=== PATIENT | female | born 1970 | race African-American/Black ===

== ENCOUNTER 2023-05-24 15:45 | Outpatient (RCR) | payer BC, SELFPAY ==
--- NOTE | 2023-05-03 15:05 | PTOPEVAL1 ---
Assessment and note entered by Shiloh Gross DPT Evaluation Information Assessment Status Evaluation Subjective Information Pt reports she has been diagnosed with stage 4 endometriosis. Has had 4 surgeries for it in the past. Pt reports she is currently having pelvic pain and spasms, is also getting thigh pain and feels like a groin injury. Also has been told she has degeneration in her hip and back. Highest pain recently /10 and lowest 1/10. Has had to start wearing more tennis shoes and flip flops due to the pain. Urinates 10 times a day and 1 time at night. Denies pain with urination. Denies urine leakage. Can hold urine unlimited amounts of time. BM every day if using an enema or suppository. Denies fecal incontinence. Previous pain with pap smears and at times pain with intercourse. Pt has never been and has been told she is perimenopausal. States when her pain is bad she has a harder time working and doing her ADL's, still has to get through work. Will return to MD soon as she just had an MRI last week. Patient goal: decrease pain. Reported Pain Level Pain Score 4: Self Report Assessment PT Clinical Summary The patient is presenting to skilled therapy with a history of pelvic and thigh pain and a diagnosis of endometriosis. She presents with significant increased pelvic floor muscle tone which is contributing to her pain and difficulty with normal activities. She will highly benefit from therapy to address these impairments in order to safely reduce pain and improve function. Plan of Care Interventions Electrical Stimulation,Hot Pack/Cold Pack,Manual Therapy,Neuro Re-education,Patient/Caregiver Education,Therapeutic Activities,Therapeutic Exercise PT Services Indicated Yes Treatment Frequency and 1 time a week for 4 weeks Duration These treatments will address the objective and functional deficits as defined above. The patient will be advanced safely and appropriately in order for the patient to progress towards his/her prior level of function. Additional exercises will be introduced and as well as a comprehensive home exercise program upon discharge, if needed, ?to ensure carryover of functional gains achieved in the clinic. This treatment plan has been reviewed and agreement upon by the patient.
--- NOTE | 2023-05-03 15:05 | OPREHPOC ---
Outpatient Therapy Plan of Care This is a Multidisciplinary Plan of Care that may contain components documented by all disciplines (PT, OT, and ST.) PT Problem 1 PT Problem #1 Knowledge Deficit PT Goal 1 Goal 1. Patient will perform independent HEP Target Visit 5 PT Problem 2 PT Problem #2 Pain PT Goal 1 Goal 1. Patient will report pain no higher than 3/10 with all activities 2. Patient will report pain no higher than 1/10 with palpation of pelvic floor Target Visit 5 PT Problem 3 PT Problem #3 Impaired Functional ADLs PT Goal 1 Goal 1. Patient able to do normal work and daily activities without limitation Target Visit 5
--- NOTE | 2023-05-10 10:34 | PCPTNOTE ---
Patient did not show up for appointment on 05/10/23. Left voicemail for patient to reschedule.
--- NOTE | 2023-05-31 11:33 | PCPTNOTE ---
Patient called to cancel appointment 05/31/23 due to having a pre-op appointment. She will call to schedule when able to return after her surgery.
--- NOTE | 2023-07-12 09:39 | PTOPDC ---
Assessment and note entered by Shiloh Gross, DPT Evaluation Information Assessment Status Discharge - Pt Not Present Subjective Information - Assessment PT Clinical Summary The patient has not attended therapy since 05/24/23 as she was planning to have surgery. She will be discharged this date and need a new script to resume therapy in the future. Plan of Care PT Services Indicated No
== END 2023-07-12 10:02 | disposition home or self-care (01) ==
LOC: ANHGOSHPT 15:45
PROVIDERS: PCP Internal Medicine
DX: N80.9 Endometriosis, unspecified (principal); N80.129 Deep endometriosis of ovary, unspecified ovary
CPT/HCPCS: 97110; 97140; 97162

== ENCOUNTER 2025-03-19 14:23 | Outpatient (CLI) | payer BC, SELFPAY ==
--- OUTSIDE RECORDS SUMMARY | 2023-12-04 16:30 | XMS_ITS ---
Author Organization [employer] [facility] [facility] ([address]) Address [address] [place] [address] Care Team Providers Care Meat Seafood Associate Name Role Phone Corrine ST, Ebony Primary Care Provider Dr. Dale Schneider Unavailable [phone] Z[employer], Provider Unavailable Unavailab le Allergies Allergen (clinical drug ingredient) Drug/Non Drug Allergy documented on EMR Reaction Allergy Type Onset Date Status Substance with sulfonamide structure and antibacterial mechanism of action (substance) SULFA (uncoded) Unknown Allergy Active REASON FOR VISIT [facility] To [facility] Conversion Encounter Medications Medication SIG (Take, Route, Frequency, Duration) Notes Start Date End Date Status Omeprazole 20 MG 1 cap(s) orally once a day; Duration: 30 day(s) Active SEMAGLUTIDE 0.5 MG/0.5 ML (0.5 MG DOSE) SUBCUTANEOUS SOLUTION ADDWITHOUTSIG *Please review for potential replacement for e-prescription and drug interaction check* Not-Taking Acetaminophen 325 MG 2 tab(s) orally every 4 hours Not-Taking LEUPROLIDE 7.5 MG/MONTH DIRECTED SUBCUTANEOUSLY ONCE A MONTH; Duration: 30 DAY(S) *Please review for potential replacement for e-prescription and drug interaction check* Not-Taking AIMOVIG SURECLICK AUTOINJECTOR AOOE 140 MG/ML 1 INJECTION SUBCUTANEOUSLY ONCE A MONTH *Please review for potential replacement for e-prescription and drug interaction check* 07/28/2023 Active SUMAtriptan Succinate 100 MG 1 tab(s) orally once Unknown NURTEC ODT 75 MG 1 TAB(S) ORALLY ONCE PRN *Please review for potential replacement for e-prescription and drug interaction check* 03/03/2023 Active AMITIZA 24 MCG ORAL CAPSULE ADDWITHOUTSIG *Please review for potential replacement for e-prescription and drug interaction check* 07/11/2020 Unknown Etonogestrel 68 MG 1 ea subcutaneously once; Duration: 1 dose(s) Not-Taking Docusate Calcium 50 MG/5 ML 5 ML ORALLY ONCE A DAY *Please review and pick correct strength-formula tion from Diarize options. If intended option is not shown, discontinue and re-order from Quick Search* Not-Taking Norethindrone Acetate 5 MG 1 tab(s) orally once a day Not-Taking Cholecalciferol 125 MCG 1 CAP(S) ORALLY ONCE A DAY; Duration: 30 DAY(S) *Please review and pick correct strength-formula tion from Diarize options. If intended option is not shown, discontinue and re-order from Quick Search* Not-Taking DICLOFENAC 1% TOPICAL KIT ADDWITHOUTSIG *Please review for potential replacement for e-prescription and drug interaction check* Not-Taking BUTABARBITAL ADDWITHOUTSIG *Please review for potential replacement for e-prescription and drug interaction check* Not-Taking Topiramate 25 MG 1 tab(s) orally 2 times a day Active Encounters Encounter Location Date Provider Diagnosis [address] [address] 12/04/2023 Provider [facility] Migraine without aura, not intractable, without status migrainosus G43.009 Assessments Encounter Date Diagnosis (ICD Code) Assessment Notes Treatment Notes Treatment Clinical Notes Section Notes 12/04/2023 Migraine without aura, not intractable, without status migrainosus (ICD-10 - G43.009) Plan Of Treatment Medication Medication Name Sig Start Date Stop Date Notes AIMOVIG SURECLICK AUTOINJECTOR AOOE 140 MG/ML 1 INJECTION SUBCUTANEOUSLY ONCE A MONTH 07/28/2023 *Please review for potential replacement for e-prescription and drug interaction check* NURTEC ODT 75 MG 1 TAB(S) ORALLY ONCE PRN 03/03/2023 *Please review for potential replacement for e-prescription and drug interaction check* Progress Notes * Emilie HAZELDOB: 3 (54 yo F)Acc No.[id number]:12/04/2023 Patient: Emilie NEW Provider: Parul Villegas :1970 A ge:53 Y S ex:Female Date:12/04/2023 Address:[address] [place], [place] [id number] Pcp:Ebony Castle MD Subjective: * Chief Complaints: * 1 . [facility] To [facility] Conversion Encounter. * Medical History: * Medications: T aking Omeprazole 20 MG Capsule Delayed Release 1 cap(s) orally once a day , Taking Topiramate 25 MG Tablet 1 tab(s) orally 2 times a day , Not-Taking/PRN Acetaminophen 325 MG Tablet 2 tab(s) orally every 4 hours , Not-Taking/PRN LEUPROLIDE 7.5 MG/MONTH POWDER FOR INJECTION, EXTENDED RELEASE DIRECTED SUBCUTANEOUSLY ONCE A MONTH , Notes to Pharmacist: *Please review for potential replacement for e-prescription and drug interaction check*, Not-Taking/PRN SEMAGLUTIDE 0.5 MG/0.5 ML (0.5 MG DOSE) SUBCUTANEOUS SOLUTION ADDWITHOUTSIG , Notes to Pharmacist: *Please review for potential replacement for e-prescription and drug interaction check*, Not- Taking/PRN BUTABARBITAL ADDWITHOUTSIG , Notes to Pharmacist: *Please review for potential replacement for e-prescription and drug interaction check*, Not-Taking/PRN Cholecalciferol 125 MCG CAPSULE 1 CAP(S) ORALLY ONCE A DAY , Notes to Pharmacist: *Please review and pick correct strength-formulation from Sernovaspan options. If intended option is not shown, discontinue and re-order from Quick Search*, Not-Taking/PRN DICLOFENAC 1% TOPICAL KIT ADDWITHOUTSIG , Notes to Pharmacist: *Please review for potential replacement for e-prescription and drug interaction check*, Not-Taking/PRN Norethindrone Acetate 5 MG Tablet 1 tab(s) orally once a day , Not-Taking/PRN Docusate Calcium 50 MG/5 ML SOLUTION 5 ML ORALLY ONCE A DAY , Notes to Pharmacist: *Please review and pick correct strength-formulation from Medispan options. If intended option is not shown, discontinue and re-order from Quick Search*, Not-Taking/PRN Etonogestrel 68 MG Implant 1 ea subcutaneously once , Unknown SUMAtriptan Succinate 100 MG Tablet 1 tab(s) orally once , Unknown AMITIZA 24 MCG ORAL CAPSULE ADDWITHOUTSIG , Notes to Pharmacist: *Please review for potential replacement for e-prescription and drug interaction check* * Allergies: S ULFA. Objective: * Vitals: Assessment: * Assessment: 1. M igraine without aura, not intractable, without status migrainosus - G43.009 (Primary) Plan: * Treatment: * Billing Information: * Visit Code: * Procedure Codes: * Electronic signature of Margaret SANCHEZ-Migration on 03/19/2025 at 03:08 PM CDT Sign off status: Pending * Provider: Parul rahman Migration Date: 0 12/04/2023 Generated for Demetrius prather/Sg/Lana on: 03/19/2025 03:08 PM CDT
--- OUTSIDE RECORDS SUMMARY | 2024-02-24 12:30 | XMS_ITS ---
Author Organization [facility] [place] ([address]) Address [address] [place] [address] Care Team Providers Care Occ Therapist Name Role Phone Corrine ST, Mounir Primary Care Provider Dr. Dale Schneider [facility] [phone] REASON FOR VISIT Headache follow-up Encounters Encounter Location Date Provider Diagnosis [facility] [address] [place] [address] 02/24/2024 Dale Jean Chronic migraine without aura, not intractable, without status migrainosus G43.709 ; Migraine with aura, not intractable, without status migrainosus G43.109 ; Migraine without aura, not intractable, without status migrainosus G43.009 and Drug-induced headache, not elsewhere classified, not intractable G44.40 Assessments Encounter Date Diagnosis (ICD Code) Assessment Notes Treatment Notes Treatment Clinical Notes Section Notes 02/24/2024 Chronic migraine without aura, not intractable, without status migrainosus (ICD-10 - G43.709) 02/24/2024 Migraine with aura, not intractable, without status migrainosus (ICD-10 - G43.109) 02/24/2024 Migraine without aura, not intractable, without status migrainosus (ICD-10 - G43.009) 02/24/2024 Drug-induced headache, not elsewhere classified, not intractable (ICD-10 - G44.40) Plan Of Treatment Next Appt Details Follow Up: 4 Weeks, Reason: Evaluation and Management Progress Notes * Emilie HAZELDOB: 3 (54 yo F)Acc No.[id number]:02/24/2024 Progress Notes Patient: Emilie NEW Provider: Chase Jean MD :1970 A ge:53 Y S ex:Female Date:02/24/2024 Address:[address] [place] [address] [id number] Pcp:Ebony Castle MD Subjective: * Chief Complaints: * 1 . Headache follow-up. * HPI: * Introduction: HPI: w lola presented for follow-up for headaches. * Initial History: INITIAL VISIT HISTORY: LAST VISIT HISTORY:. * Previous Impression & Plan: Notes P revious Diagnoses: 1 ) 2 ) 3 ) P revious Recommendations: 1 ) 2 ) 3 ) . * Interval History: Notes P harmacologic Treatment: C urrent abortive treatment: P revious abortive treatment: C urrent preventive treatment: P revious preventive treatment: M edication overuse: Present/Not present O ther modalities: Chiropractic, Physical Therapy, Acunpuncture, Biofeedback, Migraine devices H eadache Frequency: I nitial/baseline headache/migraine days/month: / L ast visit headache/migraine days/month: / C urrent headache/migraine days/month: / H eadache Scales: H IT-6: Current score: . Prior score: M IDAS: Current score: . Prior score: I nterval History: L ast visit was on . * Medical History: Objective: * Vitals: * Examination: G eneral examination: General appearance: P leasant, well-developed, well-nourished. HEENT: P upils equal, round and reactive to light. No conjunctival injection. No tenderness to palpation over the maxillary sinuses. No turbinate hypertrophy. Tympanic membranes appear normal. No oral lesions. No tenderness to palpation over the occipital notch bilaterally. Neurologic exam: A lert and oriented x 4. Fluent speech. Intact recall, fund of knowledge. Appropriate affect. Cranial nerves II-XII intact. Motor 5/5 strength in all extremities. Reflexes 2+/2 and symmetric in all extremities. Bilateral flexor plantar responses. Sensory exam intact to light touch, pinprick, vibration in all extremities. Cerebellar testing no ataxia or dysmetria. Gait normal. Back: N o cervical or periscapular trigger points. ? Assessment: * Assessment: 1. C hronic migraine without aura, not intractable, without status migrainosus - G43.709 (Primary) 2 . M igraine with aura, not intractable, without status migrainosus - G43.109 3 . M igraine without aura, not intractable, without status migrainosus - G43.009 4 . D rug-induced headache, not elsewhere classified, not intractable - G44.40 Plan: * Treatment: * Procedure Codes: 9 6160 PT-FOCUSED HLTH RISK ASSMT, G8427 DOC MEDS VERIFIED W/PT OR RE * Follow Up: 4 Weeks (Reason: Evaluation and Management) * Billing Information: * Visit Code: 11903 Office Visit, Est Pt., Level 4. Modifiers: 25 56273 Office Visit, Est Pt., Level 3. Modifiers: 25 * Procedure Codes: 51335 PT-FOCUSED HLTH RISK ASSMT. G8427 DOC MEDS VERIFIED W/PT OR RE. * Electronic signature of Dr. Dale Jean MD on 03/19/2025 at 03:08 PM CDT Sign off status: Pending * Provider: Chase Jean MD Date: 02/24/2024 Generated for Demetrius prather/Sg/eTransmitting on: 0 03/19/2025 03:08 PM CDT History and Physical Notes * HPI (History of Present Illness) Category Sub-Category Detail Notes Category Not es *Introduction HPI: who presented fo r follow-up for headaches *Initial History INITIAL VISIT HISTORY: LAST VISIT HISTORY: *Previous Impression & Plan Notes Previous Diagnoses: 1) 2) 3) Previous Recommendations: 1) 2) 3) *Interval History Notes Pharmacologic Treatment:Current abortive treatment:Previous abortive treatment:Current preventive treatment:Previous preventive treatment:Medication overuse: Present/Not presentOther modalities: Chiropractic, Physical Therapy, Acunpuncture, Biofeedback, Migraine devicesHeadache Frequency:Initial/baseline headache/migraine days/month: /Last visit headache/migraine days/month: /Current headache/migraine days/month: /Headache Scales:HIT-6: Current score: . Prior score: MIDAS: Current score: . Prior score: Interval History:Last visit was on Examination Category Sub-Category Detail Notes Category Not es General examination HEENT: Pupils equal , round and reactive to light. No conjunctival injection. No tenderness to palpation over the maxillary sinuses. No turbinate hypertrophy. Tympanic membranes appear normal. No oral lesions. No tenderness to palpation over the occipital notch bilaterally General appearance: Pleasant, well-devel oped, well-nourished Neurologic exam: Alert and oriented x 4. Fluent speech. Intact recall, fund of knowledge. Appropriate affect. Cranial nerves II-XII intact. Motor 5/5 strength in all extremities. Reflexes 2+/2 and symmetric in all extremities. Bilateral flexor plantar responses. Sensory exam intact to light touch, pinprick, vibration in all extremities. Cerebellar testing no ataxia or dysmetria. Gait normal Back: No cervical or peris capular trigger points
--- OUTSIDE RECORDS SUMMARY | 2024-08-31 12:30 | XMS_ITS ---
Author Organization [facility] [employer] [facility] [place] ([address]) Address [address] [place] [address] Care Team Providers Care Assurance Associate Name Role Phone Corrine ST, Ebony Primary Care Provider Dr. Dale Schneider Unavailable [phone] Bisi Albright [phone] REASON FOR VISIT Headache follow-up Encounters Encounter Location Date Provider Diagnosis [facility] [address] [place] [address] 08/31/2024 Bisi Albright Plan Of Treatment No Information Progress Notes * Emilie HAZELDOB: 3 (54 yo F)Acc No.[id number]:08/31/2024 Progress Notes Patient: Emilie NEW Provider: Kimberly Albright APRN :1970 A ge:54 Y S ex:Female Date:08/31/2024 Address:[address], [place] [facility] Pcp:Ebony Castle MD Subjective: * Chief Complaints: * 1 . Headache follow-up. * Medical History: Objective: * Vitals: Assessment: Plan: * Treatment: * Billing Information: * Visit Code: * Procedure Codes: * Electronic signature of EDY Bonilla-Viviana on 03/19/2025 at 03:08 PM CDT Sign off status: Pending * Provider: Kimberly Albright APRN Date: 0 08/31/2024 Generated for Demetrius prather/Sg/Lana on: 0 03/19/2025 03:08 PM CDT
--- NOTE | ~2025-03-19 | XR_ITS ---
XR lumbar spine 2-3V Indication: KIDNEY STONE;LUMBAR SPONDYLITIS Comparison: None Findings: Mild levoconvex scoliosis. Grade 1 anterolisthesis of L3 on L4 and L4 on L5, no fracture. Mild loss of disc height throughout Soft tissues unremarkable Impression: No acute abnormality. Reviewed, dictated and finalized at location P. Impression: No acute abnormality.
--- NOTE | ~2025-03-19 | XR_ITS ---
Abdominal radiograph(s) INDICATION: Kidney stone COMPARISON: None TECHNIQUE: 2 views supine AP abdomen FINDINGS: Lung bases clear. Scattered colonic stool. Small bowel loops not well seen. No evidence of organomegaly. No abnormal abdominal calcifications. Pelvic phleboliths. No acute bony abnormality. IMPRESSION: 1. No nephroureteral stones identified. Reviewed, dictated and finalized at location R.
--- OUTSIDE RECORDS SUMMARY | 2025-03-19 15:09 | XMS_ITS | Clinical Summary ---
Author Organization [facility] Address [address] [place] [address] Care Team Providers Care Napkin Band Wrapper Name Role Phone Unavailable Primary Care Provider Unavailabl e Allergies No known active allergies Medications propranolol (INDERAL) 20 mg tablet Take 20 mg by mouth 3 times daily. Active SUMAtriptan (IMITREX) 100 mg tablet Take 100 mg by mouth see administration instructions may repeat in 2 hours; max dose 200mg in 24 hours . Active BUTALB/ACETAMI NOPHEN/CAFFEIN E (FIORICET ORAL) Take by mouth. Activ e LEVONORGESTREL (MIRENA INTRAUTERINE) by Intrauterine route. Active ETONOGESTREL/E THINYL ESTRADIOL (NUVARING VAGINAL) Insert vaginally. Ac tive Active Problems No known active problems Social History Tobacco Use Types Packs/Day Years Used Date Smoking Tobacco: Never Smokeless Tobacco: Never Comments Unknown Sex and Gender Information Value Date Recorded Sex Assigned at Not on file Legal Sex Female 4:55 PM RIG BUILDER HELPER Gender Identity Not on file Sexual Orientation Not on file Last Filed Vital Signs Vital Sign Reading Time Taken Comments Blood Pressure 108/75 05/10/2017 5:25 PM RIG BUILDER HELPER Pulse 88 05/10/2017 5:25 PM RIG BUILDER HELPER Temperature 37.1 C (98.8 F) 05/10/2017 5:25 PM RIG BUILDER HELPER Respiratory Rate 14 05/10/2017 5:25 PM RIG BUILDER HELPER Oxygen Saturation 96% 05/10/2017 5:25 PM RIG BUILDER HELPER Inhaled Oxygen Concentration - - Weight 81.6 kg (180 lb) 05/10/2017 5:25 PM RIG BUILDER HELPER Height 165.1 cm (5' 5) 05/10/2017 5:25 PM RIG BUILDER HELPER Body Mass Index 29.95 05/10/2017 5:25 PM RIG BUILDER HELPER Plan of Treatment Health Maintenance Due Date Last Done Comments DTAP/TDAP/TD VACCINES (1 - Tdap) 1991 HEPATITIS B VACCINES (1 of 3 - 19+ 3-dose series) 06/22 HPV/Cotest (21-29) 1993 CERVICAL CANCER SCREENING 2002 HPV/Cotest (30-65) 2002 PAP SMEAR 2002 BREAST CANCER SCREENING 2012 COLORECTAL SCREENING 2017 Colorectal Cancer Screening 2017 FIT-DNA Q 3 years 2017 FIT/FOBT Q 1 year 2017 Flex Sig/CT Colonography Q 5 years 2017 ZOSTER VACCINE (1 of 2) 2022 INFLUENZA VACCINE (#1) 2025
--- OUTSIDE RECORDS SUMMARY | 2025-03-19 15:09 | XMS_ITS | Encounter Summary ---
Author Organization [facility] Address [address] [place] [address] Care Team Providers Care Bronc Buster Name Role Phone Ebony Castle MD Primary Care Provider [phone] Reason for Referral * Surgical (Routine) - Closed Specialty Diagnoses / Procedures Referred By Kenyon patricia Referred To Contact Diagnoses Bunion of right foot Correction of bunion right foot. Exostectomy 3rd toe right-possible Santos Ostomy right Hallux. Procedures Case request operating room: BUNIONECTOMY WITH OSTEOTOMY- correction of bunion right- exostectomy 3rd toe right - possible Santos osteotomy fight hallux ( [id number]) Alex Martinez DPM Phone: tel: fax: Alex Martinez DPM Phone: tel: fax: Referral ID Status Reason Start Date Expiration Date Visits Re quested Visits Authorized [id number] Closed 05/09/2019 06/08/2020 1 1 [employer]IDENT [employer]ING Encounter Details Date Type Department Care Team (Late st Contact Info) Description 05/09/2019 Prep for Procedure [facility] [address] [place] [address] Alex Martinez, DPM [address] [phone] Social History Tobacco Use Types Packs/Day Years Used Date Smoking Tobacco: Never Smokeless Tobacco: Never Alcohol Use Standard Drinks/Week Comments Yes 0 (1 standard drink = 0.6 oz pur e alcohol) AUDIT-C Answer Date Recorded Frequency of Alcohol Consumption 2-3 times a wee k 12/28/2018 Average Number of Drinks Not on file 019 Frequency of Binge Drinking Not on file 12/19 Comments Unknown Sex and Gender Information Value Date Recorded Sex Assigned at Female 12/28/2018 2:19 PM CDT Legal Sex Female 5:43 PM CDT Gender Identity Female 12/28/2018 2:19 PM CDT Sexual Orientation Straight 12/28/2018 2: 19 PM CDT documented as of this encounter Plan of Treatment Scheduled Orders Name Type Priority Associated Diagnoses Orde r Schedule Case request operating room: BUNIONECTOMY WITH OSTEOTOMY- correction of bunion right- exostectomy 3rd toe right - possible Santos osteotomy fight hallux ( [id number]) Case Request Routine Once for 1 Occurrences starting 05/09/2019 until 05/09/2019 documented as of this encounter Visit Diagnoses Diagnosis Prophylactic antibiotic- Primary Encounter for long-term (current) use of antibiotics documented in this encounter Care Teams Bronc Buster Relationship Specialty Start Date End Date Ebony Castle MD PCP - General 01/06/16 documented as of this encounter
--- OUTSIDE RECORDS SUMMARY | 2025-03-19 15:09 | XMS_ITS | Clinical Summary ---
Author Organization [facility] Address [address] [place] [address] Care Team Providers Care Measurement Technician Name Role Phone Ebony Castle MD Primary Care Provider [phone] Jarrell Mane MD Unavailable [phone] Allergies Active Allergy Reactions Criticality Noted Date Comments Other Headache Low 10/05/2018 Migraine-any highlighters on papers and colored paper Sulfa (Sulfonamide Antibiotics) Hives Medium 05/27/2011 Sulfacetamide Sodium-Sulfur Hives Medium 10/06/19 19 Tramadol Dizziness Low 10/05/2018 Medications fluticasone propionate (FLONASE) 50 mcg/actuation nasal sprayIndications:All ergic Rhinitis Administer 2 sprays into each nostril as needed for rhinitis or allergies Active SUMAtriptan (IMITREX) 100 mg tabletIndications:Mi graine Take 1 tablet (100 mg total) by mouth once as needed for migraine Rarely takes,takes last Active ascorbic acid (VITAMIN C) 1,000 mg tabletIndications:Vi tamin C Deficiency Take 1 tablet (1,000 mg total) by mouth daily as needed (supplement) Active cholecalciferol (VITAMIN D-3) 2000 unit tabletIndications:Vi tamin D Deficiency,supplemen t Take 1 tablet (2,000 Units total) by mouth every morning Active butalbital-acetamino phen-caffeine (ESGIC) 50-325-40 mg per tabletIndications:Mi graine Take 1 tablet by mouth every 6 (six) hours as needed for headaches Active omeprazole (PriLOSEC) 20 mg capsuleIndications:S ymptomatic Gastroesophageal Reflux Disease Take 1 capsule (20 mg total) by mouth daily before breakfast 11/15/19 21 Active ubrogepant (UBRELVY) 50 mg tabletIndications:Mi graine Take 1 tablet (50 mg total) by mouth once as needed for migraine Active guaiFENesin-dextrome thorphan ER (MUCINEX DM) 600-30 mg tablet extended release 12 hrIndications:Cough Take 1 tablet by mouth as needed Active rimegepant (Nurtec ODT) tablet,disintegratin gIndications:Migrain e Take 1 tablet (75 mg total) by mouth as needed (migraine) Active UNABLE TO FINDIndications:supp lement for migraine prevention Take 1 each by mouth every morning Med Name: [facility] 380 Active pyridoxine (VITAMIN B-6) 100 mg tabletIndications:Py ridoxine Deficiency,supplemen t Take 1 tablet (100 mg total) by mouth every morning Active zinc gluconate 50 mg tabletIndications:messer pplement Take 1 tablet (50 mg total) by mouth every morning Active polyethylene glycol (MIRALAX) 17 gram/dose bulk powder Take 17 g by mouth daily 116 g 06/04/20 23 Active Additional Information Patient taking differently:17 g oralAs needed, Indications: Bowel Evacuation, constipation, Informant: Self, Reported on 01/10/2025 Aimovig Autoinjector 140 mg/mL auto-injectorIndicat ions:Migraine Prevention Inject 1 mL (140 mg total) under the skin every 30 (thirty) days 1st of the month 11/23/19 24 Active meloxicam (MOBIC) 15 mg tablet Take 1 tablet by mouth once daily 30 tablet 03/17/20 24 Active Additional Information Patient taking differently:15 mg oralAs needed, pain, Has not taken in over 1 month , Indications: Osteoarthritis, pain, Informant: Self, Reported on 01/17/2025 bisacodyl EC (DULCOLAX EC) 5 mg EC tabletIndications:co nstipation Take 1 tablet (5 mg total) by mouth every evening Active cyclobenzaprine (FLEXERIL) 5 mg tabletIndications:Mu scle Spasm Take 1 tablet (5 mg total) by mouth 3 (three) times a day as needed for muscle spasms Active BIOTIN ORALIndications:supp lement Take 1 tablet by mouth 2 (two) times a day Active ginseng 100 mg capsule Take 1 capsule by mouth daily before breakfast Supplement -currently out of medication Active senna-docusate (PERICOLACE) 8.6-50 mg Take 2 tablets by mouth 2 (two) times a day May increase to 4 tablets twice daily if needed. HOLD medication for diarrhea. 14 tablet 1 10/05/19 25 Active Additional Information Patient taking differently:2 tablet oralAs needed, constipation, May increase to 4 tablets twice daily if needed. HOLD medication for diarrhea.,Indications: constipation, Informant: Self, Reported on 01/10/2025 clobetasoL (TEMOVATE) 0.05 % creamIndications:Ski n Inflammation Apply 1 Application topically 2 (two) times a day 12/13/19 25 Active nitroglycerin (NITROSTAT) 0.[address] 1 tablet (0.4 mg total) under the tongue every 5 (five) minutes as needed for chest pain (chest pain related anxiety) Has not taken 12/31/19 25 Active CALCIUM ORAL Take 1 tablet by mouth every evening Supplement Active psyllium 0.52 gram capsuleIndications:c onstipation Take 1 capsule (0.52 g total) by mouth daily before breakfast Active cyanocobalamin, vitamin B-12, (VITAMIN B-12 ORAL) Take 1 tablet by mouth daily before breakfast Supplement Active 5-hydroxytryptophan, 5-HTP, 50 mg capsule Take 1 tablet by mouth daily before breakfast Supplement Active HYDROcodone-acetamin ophen (NORCO) 5-325 mg per tabletIndications:Pa in Take 1-2 tablets by mouth every 4 (four) hours as needed for pain 8 tablet 01/18/20 25 Active acetaminophen (TYLENOL) 500 mg tablet Take 1 tablet (500 mg total) by mouth every 6 (six) hours as needed for pain Active verapamiL (CALAN) 120 mg tablet Take 1 tablet (120 mg total) by mouth daily 05/08/20 24 Active Active Problems Problem Noted Date Diagnosed Date De Quervain's tenosynovitis, right 01/09/2025 Amnesia 10/17/2024 Drug induced headache 10/17/2024 Non-refractory chronic migraine without aura Trigger finger of left thumb 09/06/2024 De Quervain's disease (radial styloid tenosynovi tis) 09/06/2024 Tenosynovitis, de Quervain 01/06/2024 Overview (01/19/2024): Labs 01/06/2024: CBC WNL; CMP glucose 105, but otherwise WNL; ESR/CRP WNL; rheumatoid factor/CCP/MVCWNL; hepatitis-B/C nonreactive; HIV antibody nonreactive US left hand/wrist 01/18/24: Tendon sheath effusion of the 1st extensor compartment suggestive of de Quervain tenosynovitis Grade 1 power Doppler of the dorsal wrist hand radial scaphoid joint Grade 1 effusion of the ulnar styloid Grade 2 power Doppler within the flexor tendons at the volar wrist Mild synovial thickening of the 2nd and 3rd PIPJ Assessment & Plan (01/19/2024 10:45 AM CDT): Laure is a pleasant 53 yoF that presented to our office with pain over the radial aspect of the L hand with recent diagnosis of dequervain's tenosynovitis per hand orthopedics. Received tendon injection last month without relief. Is in thumb spica splint, which does offer benefit. Otherwise, had recent R thumb trigger finger resolved with injection. Had previous R hand pain over the palm of the middle and ring fingers, which is now resolved. No current joint complaints other than L radial wrist pain discussed above. Denies inflammatory symptoms. Has pos morales's test with L wrist swelling. No other obvious synovitis. Labs 12/2023 displayed rheumatoid factor/CCP/MVC wnl with ESR/CRP WNL. Left hand/wrist ultrasound displayed a tendon sheath effusion of the 1st extensor compartment suggestive of de Quervain tenosynovitis. Otherwise, there was Doppler activity in the dorsal wrist and radial scaphoid along with flexor tendons of the volar wrist in an effusion of the ulnar styloid with no other significant findings. At this time, do not see obvious evidence to suggest an underlying autoimmune disease. Findings consistent with the Quervain tenosynovitis. She is currently prescribed meloxicam 7.5 mg daily. She usually alternates between this and naproxen or ibuprofen along with Tylenol Arthritis 750 mg b.i.d. (couldn't tolerate higher dose). Symptoms have improved with some residual discomfort. Will increase meloxicam to 15 mg daily and take this in combination with Tylenol Arthritis 750 mg b.i.d. and OTC Voltaren gel. Continue use of thumb spica splint. Continue to follow with hand Orthopedic and could consider a repeat de Quervain injection in the future. Follow up as needed or if any new symptoms arise. Seen with Dr. Mane. Assessment & Plan (01/06/2024 10:31 PM CDT): Larue is a pleasant 53 yoF presenting to our office with pain over the radial aspect of the L hand with recent diagnosis of dequervain's tenosynovitis per hand orthopedics. Received tendon injection last month without relief. Is in thumb spica splint, which does offer benefit. Otherwise, had recent R thumb trigger finger resolved with injection. Had previous R hand pain over the palm of the middle and ring fingers, which is now resolved. No current joint complaints other than L radial wrist pain discussed above. Denies inflammatory symptoms. Has pos morales's test with L wrist swelling. No other obvious synovitis. Do not see evidence for an inflammatory arthritis and/or autoimmune disease. Will evaluate further with appropriate serologies, radiographs, and L hand/wrist US. Recommended tylenol arthritis 1300 mg bid in combination with mobic. Continue use of thumb spica splint. Fu 2 weeks. Sooner if needed. Seen with Dr. Mane. Abnormal white blood cell (WBC) count 10/18/2023 Low vitamin D level 10/18/2023 Mixed anxiety and depressive disorder 09/17/2023 Endometriosis 04/15/2023 Gastroesophageal reflux disease without esophagi tis 01/13/2022 Pain of left thigh 06/17/2021 Helicobacter pylori gastrointestinal tract infec tion 09/18/2020 Helicobacter pylori gastritis 09/16/2020 Kidney stone 11/08/2017 Right flank pain 05/27/2017 Obesity with body mass index 30 or greater 05/25 Endometriosis determined by laparoscopy 01/21/20 16 Urinary tract infection 01/16/2016 Fallopian tube disorder 12/16/2015 Migraine 11/20/2015 Assessment & Plan (04/16/2020 5:16 PM CDT): Patient is a former patient of [facility]. Prior medical records from [facility] have been reviewed today with patient to facilitate transfer in care. Since last being seen a [facility] because of an increase in migraine frequency she was initiated on Aimovig and topiramate was discontinued. She continues on sumatriptan for abortive breakthrough and Fioricet for rescue. Her headache frequency is have recently reduced from 18 per month to 15 per month on Aimovig treatment. She does find that the sumatriptan and Fioricet seem to work a little bit better with the Aimovig on board. She has had no tolerability issues with medication. She will continue on Aimovig for migraine prophylaxis at this time. She is in not of need of refill as is being provided through her PCP. She does not need a renewal of sumatriptan either at this time is that is being renewed by her provider. She is asking for renewal of Fioricet and I have prescribed her a renewal as previously prescribed [facility]. I will plan on seeing her back for reassessment on her present regimen in 6 months time. Vitamin D deficiency 11/20/2015 Endometrioma of ovary 11/19/2014 Endometriosis of pelvic peritoneum 11/19/2014 Other ovarian dysfunction 11/19/2014 Hematuria 09/06/2014 Nephrolithiasis 09/06/2014 Abnormal perimenopausal bleeding 05/27/2011 Encounters Date Type Department Care Team Description 02/20/2025 7:57 AM CDT - 02/20/2025 11:59 PM CDT Hospital Encounter [facility] Radiology [facility] [address] [place] [id number] Tonia Trejo MD Pain of left hip (Primary Dx); Left hip pain Discharge Disposition: Discharge to home or self care 02/20/2025 Orders Only [facility] Orthopaedic Surgery [address] [place] [address] Office [address] [place] [address] Tonia Trejo MD Left hip pain (Primary Dx); Obesity (BMI 30-39.9) 02/20/2025 Orders Only [facility] Orthopaedic Surgery [address] [place] [address] [address] [place] [id number] Tonia Trejo MD Loss of weight (Primary Dx) 02/14/2025 Telephone Radiology - [address] [place] [address] [address] [place] [address] Karishma Bae, RT 02/12/2025 Orders Only [facility] Medicine Orthopaedic Surgery [address] [facility] 6th [place] [address] [place] [address] Tonia Trejo MD Left hip pain (Primary Dx) 02/12/2025 Orders Only [facility] Orthopaedic Surgery [address] [facility] [address]th [place] [address] [place] [address] Tonia Trejo MD 01/30/2025 2:30 PM CDT Office Visit [facility] Orthopaedic Surgery [address] [place] [address] [place] [address] [place] [address] Rizwan Beck MD De Quervain's syndrome (tenosynovitis) (Primary Dx) 01/17/2025 8:45 AM CDT - 01/17/2025 9:40 AM CDT Surgery [facility] ([facility]) [address] [place] [id number] Rizwan Beck MD RELEASE DEQUERVAINS 01/17/2025 8:36 AM CDT Anesthesia Event [facility] ([facility]) [address] [place] [address] Giacomo Carroll MD Smith, Christine A., NP 01/17/2025 7:16 AM CDT - 01/17/2025 10:44 AM CDT Hospital Encounter [facility] ([facility]) [address] [place] [id number] Rizwan Beck MD De Lashaevain's tenosynovitis, right (Primary Dx) Discharge Disposition: Discharge to home or self care 01/09/2025 Telephone [facility] Orthopaedic Surgery [address] [place] [address] 6th [place] [address] [place] [address] Rizwan Beck MD surgery scheduling from Last 3 Months Surgical History Surgery Date Site/Laterality Comments LAPAROSCOPY 06/21/2005 - 06/20/2006 for endometriosis DILATION AND CURETTAGE OF UTERUS 06/21/2011 - 06/20/2012 FOOT SURGERY 06/09/2004 Left bunionectomy LAPAROSCOPY 02/19/2018 - 03/20/2018 RA Op Lap ext adhesiolysis, peritoneal bx. Dr Carrera. path of bx was c/w endometriosis US ABDOMEN COMPLETE W LIVER DOPPLER (C) 08/14/2018 Right US ABDOMEN COMPLETE W LIVER DOPPLER (C) 09/16/2018 Right FL FLUORO GUIDED INJECTION HIP LEFT 01/27/2022 Left FL FLUORO GUIDED INJECTION HIP LEFT 08/01/2024 Left LAPAROSCOPY 06/21/2008 - 06/20/2009 for endometriosis LAPAROSCOPY 06/21/2014 - 06/20/2015 HYSTERECTOMY 06/04/2023 endometriosis excision, BL salpingectomy, L oophorectomy FOOT SURGERY 06/09/2019 Right bunionectomy COLONOSCOPY HAND SURGERY 06/21/2024 - 06/20/2025 Left FL FLUORO GUIDED INJECTION HIP LEFT 02/20/2025 Left Medical History Medical History Date Comments Endometriosis Personal history of other di seases of the nervous system and sense organs History of migraine he adaches - (Added by TW Conv) Personal history of other di seases of the digestive system Visual disturbance Vision change s - (Added by TW Conv) Personal history of other me ntal and behavioral disorders History of anxiety - (Added by TW Conv) Personal history of other en docrine, nutritional and metabolic disease History of hypokalem ia - (Added by TW Conv) Motion sickness Anemia Anxiety Depression Migraines Family History Medical History Relation Name Comments Coronary artery disease Brother Deep vein thrombosis Brother Hypertension Brother Heart failure Father Heart failure Mother Hypertension Mother Hypertension Other 1 Diabetes Other 2 Obesity Other 3 Heart disease Other 4 Stroke Sister Anesthesia problems Neg Hx Breast cancer Neg Hx a niece does Relation Name Status Comments Brother Father Mother Other 1 Other 2 Other 3 Other 4 Sister Social History Tobacco Use Types Packs/Day Years Used Date Smoking Tobacco: Never Passive Smoke Exposure: Never Smokeless Tobacco: Never Tobacco Cessation:Counseling Given: Not Answered AUDIT-C Answer Date Recorded Q1: How often do you have a drink containing alcohol? 4 or more times a week 01/17/2025 Q2: How many drinks containi ng alcohol do you have on a typical day when you are drinking? 1 or 2 Q3: How often do you have si x or more drinks on one occasion? Never 01/17/2025 Personal Safety Answer Date Recorded Have you ever been in or are you currently in a harmful physical or emotional relationship or is someone making you feel afraid or unsafe? Denies 01/17/2025 Comments No Sex and Gender Information Value Date Recorded Sex Assigned at Not on file Legal Sex Female 4:26 AM LEATHER STITCHER Gender Identity Not on file Sexual Orientation Not on file Obstetrics History Para Term AB IAB SAB Ectopic Multiple Livin g Live Births 0 0 0 0 0 0 0 0 0 0 0 Comments 13/0 LTR 18.2% Last Filed Vital Signs Vital Sign [place] Time Taken Comments Blood Pressure 118/84 01/17/2025 10:00 AM CDT Pulse 79 01/17/2025 10:00 AM CDT Temperature 36 C (96.8 F) 01/17/2025 9:10 AM CDT Respiratory Rate 17 01/17/2025 10:00 AM CDT Oxygen Saturation 99% 01/17/2025 10:00 AM CDT Inhaled Oxygen Concentration - - Weight 83 kg (183 lb) 01/30/2025 3:35 PM CDT Height 165.1 cm (5' 5) 01/30/2025 3:35 PM CDT Body Mass Index 30.45 01/30/2025 3:35 PM CDT Plan of Treatment Health Maintenance Due Date Last Done Comments Colon Cancer Screening-Colonoscopy 1970 Depression Screening 1970 Hepatitis B Screening 1990 DTaP/Tdap/Td Vaccine (4 - Tdap) 06/22/2012 06/21/2012, 09/13/1974, 07/18/1974, Additional history exists Zoster Vaccine (1 of 2) 2022 Regular Well Visit/Exam 18-64 02/16/2024 02/15/2023, 12/24/2021, 12/04/2020 Breast Cancer Screening-Mammogram 05/11/2024 05/11/2023, 01/15/2022, 08/26/2018, Additional history exists Influenza Vaccine (#1) 2025 Cervical Cancer Screening Discontinued 12/04/2020 Hepatitis C Screening Completed 01/06/2024, 016 Pneumococcal vaccine <65 Aged Out No longer eligible based on patient's age to complete this topic Procedures Procedure Name Priority Date/Time Associated Diagnosis Comments FL FLUORO GUIDED INJECTION HIP LEFT Schedule Routine, Read Routine (OP Routine) 02/20/2025 8:18 AM CDT Left hip pain KS AN PROCEDURE PLACEHOLDER Routine 01/17/2025 8:51 AM CDT KS AN ELECTIVE SUPRAGLOTTIC AIRWAY Routine 01/17/2025 8:51 AM CDT RELEASE DEQUERVAINS 01/17/2025 8 :36 AM CDT De Quervain's tenosynovitis, right HEPATITIS PANEL, ACUTE Routine 01/06/2024 4:35 PM CDT SCREENING MAMMOGRAM BILATERAL W MATEUSZ Schedule Routine, Read Routine (OP Routine) 05/11/2023 3:00 PM LEATHER STITCHER Encounter for screening mammogram for malignant neoplasm of breast THINPREP PAP WITH HPV Routine 12/04/2020 9:37 AM CDT from Last 3 Months or Most Recently Relevant to Health Maintenance Results * FL Fluoro Guided Injection Hip Left (02/20/2025 8:18 AM CDT) Narrative [facility] - 02/20/2025 8:18 AM CDT The images from this study are not interpreted by Radiology. Please refer to the physician's procedure / OR operative note. us Tonia Trejo MD IMG FLUOROSCOPY PROCEDURE S Final Result [facility] * KS AN ELECTIVE SUPRAGLOTTIC AIRWAY, KS AN PROCEDURE PLACEHOLDER (01/17/2025 8:51 AM CDT) Narrative Tonia Rendon CRNA - 01/17/2025 8:51 AM CDT Tonia Rendon CRNA 01/17/2025 8:51 AM Airway Patient location: OR Urgency: elective Date/time: 01/17/2025 8:42 AM Indications for airway management: anesthesia and airway protection Difficult airway: no Staff: Placed by: RUI: Tonia Rendon CRNA Emergent airway documentation: Risks and benefits discussed: yes Consent obtained: yes Consent given by: patient Airway prep: Preoxygenated: yes Patient position: sniffing MILS maintained throughout: yes Mask difficulty assessment: 0 - not attempted Spontaneous ventilation during airway: absent Sedation level during airway: GA Final airway details: Final airway type: supraglottic airway Final supraglottic airway: IGel SGA size: 4 Number of attempts: 1 Additional comments: Atraumatic airway; dentition unchanged following intubation. Giacomo Carroll MD ANESTHESIA ORDERABLES Final Res ult * Hepatitis panel, acute (01/06/2024 4:35 PM CDT) Hep A IgM NON-REACTI VE NON-REACT BRITT [facility] Comment: For additional information, please refer to http://Kimeltu/faq/UIY648 (This link is being provided for informational/ educational purposes only.) HepBsAg NON-REACTI VE NON-REACT BRITT [facility] Comment: For additional information, please refer to http://Kimeltu/faq/CMD341 (This link is being provided for informational/ educational purposes only.) Hep B core IgM NON-REACTI VE NON-REACT BRITT [facility] Comment: For additional information, please refer to http://Kimeltu/faq/RAO255 (This link is being provided for informational/ educational purposes only.) Hep C Ab NON-REACTI VE NON-REACT BRITT [facility] Comment: HCV antibody was non-reactive. There is no laboratory evidence of HCV infection. In most cases, no further action is required. However, if recent HCV exposure is suspected, a test for HCV RNA (test code 62916) is suggested. For additional information please refer to http://[employer].Moment.me/faq/TYZ09e7 (This link is being provided for informational/ educational purposes only.) 01/06/2024 4:35 PM CDT 01/06/2024 4:36 PM CDT [facility] MICROBIOLOGY - GENE RAL ORDERABLES Final Result [facility] [id number] [facility] [place] [id number] * Screening Mammogram Bilateral W Mateusz (05/11/2023 3:00 PM LEATHER STITCHER) Anatomical Region Laterality Modality Breast Bilateral Mammography Narrative 05/12/2023 2:20 PM LEATHER STITCHER Mammogram Technique: Bilateral Digital Breast Tomosynthesis, Bilateral C-view 2D Screening mammogram. Views obtained: bilateral craniocaudal and bilateral mediolateral oblique. Computer Aided Detection was performed. Mammogram Findings: The present examination has been compared to prior imaging studies performed at [facility] on 08/21/2015 and 08/26/2018, and at [facility] on 01/15/2022. The breasts are heterogeneously dense, which may obscure small masses. There is no suspicious abnormality in either breast. Impression: There is no mammographic evidence of malignancy. Annual screening mammography is recommended.If supplemental screening is desired, breast MRI would be recommended in this patient with heterogeneously dense breasts. OVERALL FINAL ASSESSMENT: BI-RADS CATEGORY 1: Negative. Procedure Note Cherie Ballard MD - 05/12/2023 Mammogram Technique: Bilateral Digital Breast Tomosynthesis, Bilateral C-view 2D Screening mammogram. Views obtained: bilateral craniocaudal and bilateral mediolateral oblique. Computer Aided Detection was performed. Mammogram Findings: The present examination has been compared to prior imaging studies performed at [facility] on 08/21/2015 and 08/26/2018, and at [facility] on 01/15/2022. The breasts are heterogeneously dense, which may obscure small masses. There is no suspicious abnormality in either breast. Impression: There is no mammographic evidence of malignancy. Annual screening mammography is recommended.If supplemental screening is desired, breast MRI would be recommended in this patient with heterogeneously dense breasts. OVERALL FINAL ASSESSMENT: BI-RADS CATEGORY 1: Negative. us Chago Carrera MD IMG MAMMO PROCEDURES Fi nal Result * ThinPrep Pap with HPV (12/04/2020 9:37 AM CDT) Pap test 12/04/2020 9:37 AM CDT 12/06/2020 9:37 AM CDT Narrative 12/10/2020 2:08 PM CDT [facility] Department of Pathology [address] [place], [place] [id number] Final Report with Addendum Patient Name: ODILIA DOWNEY Address: [address] [place] [address] Gender: F : 1970 (Age: 50) Service: DEFAULT Location: [facility] : [id number] [facility] #: [id number] Patient Type: [facility] SPECIMEN Taken: 12/04/2020 Received: 12/06/2020 Accessioned:: 12/09/2020 Reported: 12/10/2020 Physician(s): Chago Carrera M.D. [facility] Diagnosis: Source of Specimen: Imaged Thinprep Pap Test plus HPV - Perinatal Tech Cytologic Material Specimen Adequacy: - Satisfactory for evaluation; endocervical/transformation zone component present General Category: - Negative for intraepithelial lesion or malignancy AMBER Nguyễn(ASCP) Report Electronically Reviewed and Signed Out By CHRISTOPHER NguyễnASCP) 12/10/2020 14:08:40 Addenda: HPV Test Interpretation NEGATIVE for types 16, 18, 31, 33, 35, 39, 45, 51, 52, 56, 58, 59, 66 and 68. Test performed utilizing Gen-Probe Aptima assay. AMBER Nguyễn(ASCP) Report Electronically Reviewed and Signed Out By AMBER Nguyễn(ASCP) 12/10/2020 09:25:46 Specimen(s) Received: A: Imaged Thinprep Pap Test plus HPV - Perinatal Tech Cytologic Material Clinical History: Last Menstrual Period: 10/09 Menstrual History: Irregular Cycles Previous Negative Pap The Pap test is a screening test used to aid in the detection of cervical cancer and its precursors. It should not be the sole means by which malignant and premalignant lesions are diagnosed. Both false negative and false positive results may occur. It also has poor sensitivity for the detection of endometrial lesions and should not be used to evaluate suspected endometrial abnormalities. For these reasons it is most important to obtain Pap tests at regular intervals. The performance characteristics of some immunohistochemical stains, fluorescence in-situ hybridization tests and immunophenotyping by flow cytometry cited in this report (if any) were determined by the Surgical Pathology Department at [facility] as part of an ongoing research quality assurance analyst program and in compliance with federally mandated regulations drawn from the Clinical Laboratory Improvement Act of 1988 (CLIA '88). Some of these tests rely on the use of analyte specific reagents and are subject to specific labeling requirements by the US Food and Drug Administration. Such diagnostic tests may only be performed in a facility that is certified by the Department of Health and Human Services as a high complexity laboratory under CLIA '88. The FDA has determined that such clearance or approval is not necessary. This test is used for clinical purposes. It should not be regarded as investigational or for research. Nevertheless, federal rules concerning the medical use of analyte specific reagents require that the following disclaimer be attached to the report: This test was developed and its performance characteristics determined by the Surgical Pathology Department [facility]. It has not been cleared or approved by the U. S. Food and Drug Administration. Chago Carrera MD LAB CYTOLOGY ORDERABLES Final Result from Last 3 Months or Most Recently Relevant to Health Maintenance Insurance [facility] ACCESS CHOICE ANTHEM ACCESS CHOICE ANTHEM ACCESS CHOICE ANTHEM ACCESS CHOICE Advance Directives For more information, please contact: [phone] Documents on File Type Date Recorded Patient Aircraft Armorer Expl anation ADVANCE DIRECTIVE 06/11/2023 5:25 AM MARIA LUISA R OF TERMINAL PRESS OPERATOR-MEDICAL ADVANCE DIRECTIVE 06/04/2023 5:55 AM Maria Luisa r of Water Quality Analyst-Medical Care Teams Measurement Technician Relationship Specialty Start Date End Date Ebony Castle MD [address] [facility] [address] [place] [address] PCP - General Internal Medicine 12/04/20 Jarrell Mane MD [address] [place] [id number] Consulting Physician Rheumatology 01/17/24
--- OUTSIDE RECORDS SUMMARY | 2025-03-19 15:09 | XMS_ITS | Clinical Summary ---
Author Organization [facility] Address [address] [place] [address] Care Team Providers Care Rn Lpn Cna Name Role Phone Ebony Castle MD Primary Care Provider [phone] Allergies Active Allergy Reactions Criticality Noted Date Comments Sulfa Antibiotics Unknown 05/27/2011 Tramadol Dizziness 07/30/2020 Medications Ascorbic Acid (VITAMIN C) 500 MG Cap Active butalbital-norah taminophen-caf feine 50-325-40 MG tablet butalbital-acetamin ophen-caffeine 50 mg-325 mg-40 mg tablet Active naproxen sodium 550 MG tablet 1 10/28/19 19 Active SUMAtriptan 100 MG tablet Take 100 mg by mouth. Active topiramate 25 MG tablet Take 25 mg by mouth 2 (two) times daily. 3 12/17/19 19 Active oxyCODONE immediate release 5 MG immediate release tabletIndicati ons:Acute Pain < 7 Day Supply Take 1 tablet (5 mg total) by mouth every 4 (four) hours as needed for Pain. Indications: Acute Pain < 7 Day Supply 20 tablet 06/09/20 19 Active VITAMIN D3 MAXIMUM STRENGTH 125 MCG (5000 UT) Cap Take 1 capsule by mouth daily. 06/09/20 19 Active cyclobenzaprin e 5 MG tablet cyclobenzaprine 5 mg tablet TAKE 1 TABLET BY MOUTH THREE TIMES DAILY Active AIMOVIG 70 MG/ML Solution Auto-injector INJECT ONE SYRINGE SUBCUTANEOUSLY ONCE EVERY MONTH 05/29/20 20 Active Etonogestrel-E thinyl Estradiol (NUVARING) 0.12-0.015 MG/24HR RING NuvaRing 0.12 mg-0.015 mg/24 hr vaginal Active ibuprofen 800 MG tablet ibuprofen 800 mg tablet Active lactulose (CONSTULOSE) 10 GM/15ML solution Constulose 10 gram/15 mL oral solution Active AMITIZA 24 MCG capsule 07/11/19 21 Active Multiple Vitamin (MULTI-VITAMIN ) tablet Active Active Problems Problem Noted Date Diagnosed Date Right flank pain 05/27/2017 Endometriosis 01/21/2016 Urinary tract infection 01/16/2016 Fallopian tube disorder 12/16/2015 Migraine 11/20/2015 Vitamin D deficiency 11/20/2015 Endometrioma of ovary 11/19/2014 Endometriosis of pelvic peritoneum 11/19/2014 Other ovarian dysfunction 11/19/2014 Hematuria 09/06/2014 Nephrolithiasis 09/06/2014 Abnormal perimenopausal bleeding 05/27/2011 Family History Medical History Relation Comments Diabetes Brother Hypertension Brother Heart Disease Mother Hypertension Mother Diabetes Sister Hypertension Sister Relation Status Comments Brother Alive Mother Sister Alive Social History Tobacco Use Types Packs/Day Years Used Date Smoking Tobacco: Never Smokeless Tobacco: Never Tobacco Cessation:Counseling Given: No Alcohol Use Standard Drinks/Week Comments Yes 0 (1 standard drink = 0.6 oz pur e alcohol) AUDIT-C Answer Date Recorded Frequency of Alcohol Consumption 2-3 times a wee k 06/13/2019 Average Number of Drinks 1 or 2 019 Frequency of Binge Drinking Never 05/22 PHQ-2 Answer Date Recorded PHQ-2 Score - If the patient scores above 3, please move on to questions 3-9 2 07/30/2020 Comments No Sex and Gender Information Value Date Recorded Sex Assigned at Female 12/28/2018 2:19 PM CDT Legal Sex Female 5:43 PM CDT Gender Identity Female 12/28/2018 2:19 PM CDT Sexual Orientation Straight 12/28/2018 2: 19 PM CDT Last Filed Vital Signs Vital Sign Reading Time Taken Comments Blood Pressure 124/62 07/30/2020 4:45 PM PICKLING TANK OPERATOR Pulse 81 07/30/2020 4:45 PM PICKLING TANK OPERATOR Temperature 36.6 C (97.9 F) 06/09/2019 11:04 AM PICKLING TANK OPERATOR Respiratory Rate 16 06/09/2019 12:45 PM PICKLING TANK OPERATOR Oxygen Saturation 99% 07/30/2020 4:45 PM PICKLING TANK OPERATOR Inhaled Oxygen Concentration - - Weight 77.2 kg (170 lb 3.2 oz) 07/30/2020 4:45 P M PICKLING TANK OPERATOR Height 163.1 cm (5' 4.2) 12/28/2018 2:11 PM CDT Body Mass Index 29.03 12/28/2018 2:11 PM CDT Plan of Treatment Health Maintenance Due Date Last Done Comments Cervical Cancer Screening Pap Smear (Age 30 to 64) Every 3 Years 1972 Colorectal Cancer Screening Colonoscopy (10 Years) 1972 Annual Physical 1975 Hepatitis C 1990 Hepatitis B Vaccines (1 of 3 - 19+ 3-dose series) 1991 Cervical Cancer Screening Pap with HPV Testing (Age 30 to 64) Every 5 Years 2002 Cervical Cancer Screening with HPV 2002 DTaP, Tdap and Td Vaccines (1 - Tdap) 06/22/2012 06/21/2012, 09/13/1974, 07/18/1974, Additional history exists Mammogram Screening 2012 Pneumococcal Vaccine: 50+ Years (1 of 1 - PCV) 2022 Zoster Vaccines (1 of 2) 2022 COVID-19 Vaccine (1 - 2023- season) 2025 Meningococcal B Vaccine Aged Out No l onger eligible based on patient's age to complete this topic Meningococcal Vaccine Aged Out No rolly eric eligible based on patient's age to complete this topic RSV Immunizations Under 20 Months Aged Out No longer eligible based on patient's age to complete this topic [place] [address] [facility] Care Teams Rn Lpn Cna Relationship Specialty Start Date End Date Ebony Castle MD PCP - General 01/06/16
--- OUTSIDE RECORDS SUMMARY | 2025-03-19 15:09 | XMS_ITS | Patient Health Record ---
Author Organization [facility] [employer] [place] ([address]) Address [address] [place] [address] Care Team Providers Care Home Health Clinical Supervisor Name Role Phone Corrine ST, [facility] Primary Care Provider Dr. Dale Schneider Unavailable [phone] Bisi Albright Unavailable [phone] Allergies Allergen (clinical drug ingredient) Drug/Non Drug Allergy documented on EMR Reaction Allergy Type Onset Date Status Substance with sulfonamide structure and antibacterial mechanism of action (substance) SULFA (uncoded) Unknown Allergy Active Results Component Value Reference Range Notes ESTROGEN, TOTAL, SERUM Reviewed date:01/30/2025 04:01:09 PM Interpretation: Performing Lab:[facility], [facility],, [address] [place], [address] Roxie Russ MD,PhD,LOLY Notes/Report: FASTING: YES FASTING:YES NON-FASTING; NON-FASTING; NON-FASTING ESTROGENS, TOTAL, IA 34 Reference Ranges for Total Estrogen: Follicular Phase: 51-601 Luteal Phase: 87-1194 Postmenopausal: < or = 214 FERRITIN Reviewed date:01/30/2025 04:01:09 PM Interpretation: Performing Lab:ARNOL, [facility], [address] [place], [address] Zulma Walker MD Notes/Report: FASTING: YES FASTING:YES NON-FASTING; NON-FASTING; NON-FASTING FERRITIN 15 16-232 ng/mL FOLATE, SERUM Reviewed date:01/30/2025 04:01:09 PM Interpretation: Performing Lab:[facility], [address] [place], [address] Zulma Walker MD Notes/Report: NON-FASTING; NON-FASTING; NON-FASTING FASTING:YES FASTING: YES FOLATE, SERUM 11.7 Reference Range Low: <3.4 Borderline: 3.4-5.4 Normal: >5.4 FSH Reviewed date:01/30/2025 04:01:09 PM Interpretation: Performing Lab:[facility], [address] [place], [address] Zulma Walker MD Notes/Report: NON-FASTING; NON-FASTING; NON-FASTING FASTING:YES FASTING: YES FSH 85.6 Reference Range Follicular Phase 2.5-10.2 Mid-cycle Peak 3.1-17.7 Luteal Phase 1.5- 9.1 Postmenopausal 23.0-116.3 VITAMIN B12 Reviewed date:01/30/2025 04:01:09 PM Interpretation: Performing Lab:[facility], [address] [place], [address] Zulma Walker MD Notes/Report: NON-FASTING; NON-FASTING; NON-FASTING FASTING:YES FASTING: YES VITAMIN B12 3530 002-2529 pg/mL TESTOSTERONE, FREE (DIALYSIS ) AND TOTAL,MS Reviewed date:01/30/2025 04:01:09 PM Interpretation: Performing Lab:[facility], [facility], [address] [place] [address], [address], [place], [address] Reanna Salter MD,PhD Notes/Report: NON-FASTING; NON-FASTING; NON-FASTING FASTING:YES FASTING: YES TESTOSTERONE, TOTAL, MS 17 2-45 ng/dL For additional information, please refer to https://[employer]/faq/BFW943 (This link is being provided for informational/educational purposes only.) (Note) This test was developed and its analytical performance characteristics have been determined by [employer]. It has not been cleared or approved by the FDA. This assay has been validated pursuant to the CLIA regulations and is used for clinical purposes. TESTOSTERONE, FREE 1.4 0.1-6.4 pg/mL (Note) This test was developed and its analytical performance characteristics have been determined by [employer]. It has not been cleared or approved by the FDA. This assay has been validated pursuant to the CLIA regulations and is used for clinical purposes. [facility] [address] [place] [address] [address] [facility] [address] Reanna Salter MD, PhD CARDIO IQ(R) VITAMIN D, 25 H YDROXY Reviewed date:01/30/2025 04:01:09 PM Interpretation: Performing Lab:[facility], [address] [place] [address], [address], [place], [address] Reanna Salter MD,PhD Notes/Report: NON-FASTING FASTING:YES FASTING: YES VITAMIN D, 25-OH, TOTAL 45 30-100 ng/mL For additional information, please refer to http://education.[employer]. [employer]/faq/KJO596 (This link is being provided for information/educational purposes only.) (Note) Vitamin D, 25-Hydroxy reports concentrations of two common forms, 25-OHD2 and 25-OHD3. 25-OHD3 indicates both endogenous production and supplementation. 25-OHD2 is an indicator of exogenous sources such as diet or supplementation. Therapy is based on measurement of Total 25-OHD, with levels <20 ng/mL indicative of Vitamin D deficiency, while levels between 20 ng/mL and 30 ng/mL suggest insufficiency. Optimal levels are > or = 30 ng/mL. VITAMIN D, 25-OH, D3 45 Referen ce range: Not established VITAMIN D, 25-OH, D2 <4.0 (Note) Reference range: Not established This test was developed and its analytical performance characteristics have been determined by [employer]. It has not been cleared or approved by the US Food and Drug Administration. This assay has been validated pursuant to the CLIA regulation and is used for Clinical purposes. [facility] [address] [address],[address] [facility] [address] Reanna Salter MD, PhD See Note 1 Note 1 For additional information, please refer to http://education.[employer]. [employer]/faq/GRO772 educational purposes only.) (This link is being provided for informational/ VITAMIN B6, PLASMA Reviewed date:01/30/2025 04:01:09 PM Interpretation: Performing Lab:[facility], [facility], [address] [place] [address], [address], [place], [address] Reanna Salter MD,PhD Notes/Report: NON-FASTING; NON-FASTING FASTING:YES FASTING: YES VITAMIN B6, PLASMA 142.1 2.1-21.7 ng/mL (Note) Vitamin supplementation within 24 hours prior to blood draw may affect the accuracy of results. This test was developed and its analytical performance characteristics have been determined by [facility]. It has not been cleared or approved by the FDA. This assay has been validated pursuant to the CLIA regulations and is used for clinical purposes. [facility] [address] [place] [address],[address] [facility] [address] Reanna Salter MD, PhD VITAMIN B1 (THIAMINE), BLOOD , LC/MS/MS Reviewed date:01/30/2025 04:01:09 PM Interpretation: Performing Lab:[facility], [facility], [address] [place] [address], [address], [place], [address] Reanna Salter MD,PhD Notes/Report: NON-FASTING; NON-FASTING FASTING:YES FASTING: YES VITAMIN B1 (THIAMINE), BLOOD , LC/MS/MS 93 78-185 nmol/L (Note) Vitamin supplementation within 24 hours prior to blood draw may affect the accuracy of the results. This test was developed and its analytical performance characteristics have been determined by [facility]. It has not been cleared or approved by FDA. This assay has been validated pursuant to the CLIA regulations and is used for clinical purposes. [facility] [address] [place] [address],[address] [facility] [id number] Reanna Salter MD, PhD Reason For Referral No Information Medications Medication SIG (Take, Route, Frequency, Duration) Notes Start Date End Date Status NURTEC ODT 75 MG 1 TAB(S) ORALLY ONCE PRN *Please review for potential replacement for e-prescription and drug interaction check* 03/03/2023 Active Omeprazole 20 MG 1 cap(s) orally once a day; Duration: 30 day(s) Active Acetaminophen 325 MG 2 tab(s) orally every 4 hours Not-Taking AMITIZA 24 MCG ORAL CAPSULE ADDWITHOUTSIG *Please review for potential replacement for e-prescription and drug interaction check* 07/11/2020 Unknown Topiramate 25 MG 1 tab(s) orally 2 times a day Not-Taking LEUPROLIDE 7.5 MG/MONTH DIRECTED SUBCUTANEOUSLY ONCE A MONTH; Duration: 30 DAY(S) *Please review for potential replacement for e-prescription and drug interaction check* Not-Taking DOCUSATE 50 mg/5 mL 5 mL orally once a day Not-Taking SUMATRIPTAN 100 mg 1 tab(s) orally once Unknown AIMOVIG SURECLICK AUTOINJECTOR AOOE 140 MG/ML 1 INJECTION SUBCUTANEOUSLY ONCE A MONTH *Please review for potential replacement for e-prescription and drug interaction check* 07/28/2023 Active Ubrelvy 100 MG 1 tablet Orally twice a day; Duration: 30 days 09/11/2024 Active ETONOGESTREL 68 mg 1 ea subcutaneously once; Duration: 1 dose(s) Not-Taking SUMAtriptan Succinate 100 MG 1 tab(s) orally once Unknown CHOLECALCIFEROL 125 mcg 1 cap(s) orally once a day; Duration: 30 day(s) Not-Taking Docusate Calcium 50 MG/5 ML 5 ML ORALLY ONCE A DAY *Please review and pick correct strength-formula tion from [employer] options. If intended option is not shown, discontinue and re-order from Quick Search* Not-Taking NORETHINDRONE 5 mg 1 tab(s) orally once a day Not-Taking Etonogestrel 68 MG 1 ea subcutaneously once; Duration: 1 dose(s) Not-Taking OMEPRAZOLE 20 mg 1 cap(s) orally once a day; Duration: 30 day(s) Not-Taking DICLOFENAC 1% TOPICAL KIT ADDWITHOUTSIG *Please review for potential replacement for e-prescription and drug interaction check* Not-Taking ACETAMINOPHEN 325 mg 2 tab(s) orally every 4 hours Not-Taking Norethindrone Acetate 5 MG 1 tab(s) orally once a day Not-Taking BUTABARBITAL ADDWITHOUTSIG *Please review for potential replacement for e-prescription and drug interaction check* Not-Taking Verapamil HCl 120 MG 1 tablet Orally once daily; Duration: 30 days 05/08/2024 Active Cholecalciferol 125 MCG 1 CAP(S) ORALLY ONCE A DAY; Duration: 30 DAY(S) *Please review and pick correct strength-formula tion from [employer] options. If intended option is not shown, discontinue and re-order from Quick Search* Not-Taking SEMAGLUTIDE 0.5 MG/0.5 ML (0.5 MG DOSE) SUBCUTANEOUS SOLUTION ADDWITHOUTSIG *Please review for potential replacement for e-prescription and drug interaction check* Not-Taking Social History Tobacco Use: Social History Observation Description Date Details (start date - stop date) Never Smoker NA - NA Tobacco Control (Standard) Question Answer Notes Tobacco use: Nonsmoker Problems Problem Type SNOMED Code ICD Code Onset Dates Problem Status W/U Status Risk Notes Problem Chronic migraine without aura, non-refractor y (disorder) (256861048887 100) Migraine without aura, not intractable, without status migrainosus (G43.009) Active confirmed Problem Migraine with aura (3328028) Migraine with aura, not intractable, without status migrainosus (G43.109) Active confirmed Problem Chronic migraine without aura, non-intractab le (117619288652 100) Chronic migraine without aura, not intractable, without status migrainosus (G43.709) Active confirmed Problem Drug induced headache (477394658971 104) Drug-induced headache, not elsewhere classified, not intractable (G44.40) Active confirmed Problem Unspecified menopausal and perimenopausal disorder (N95.9) Active confirmed Problem Amnesia (26757804) Other amnesia (R41.3) Active confirmed Vital Signs Respiratory Rate 17 /min 04/27/2024 Blood pressure diastolic 85 mm Hg 09/07/2024 Oximetry 99 % 09/07/2024 Height 65 in 09/07/2024 Blood pressure systolic 122 mm Hg 09/07/2024 Weight 183.2 lbs 09/07/2024 BMI 30.48 kg/m2 09/07/2024 Encounters Encounter Location Date Provider Diagnosis [facility] [address] [facility] [address] [place] [phone] 04/27/2024 Bisi Albright Migraine without aur a, not intractable, without status migrainosus G43.009 and Adverse effect of other drugs, medicaments and biological substances, initial encounter T50.995A [facility] [address] [place] [phone] 09/07/2024 Bisi Albright Migraine without aur a, not intractable, without status migrainosus G43.009 ; Other specified menopausal and perimenopausal disorders N95.8 and Other amnesia R41.[address] [address] 04/26/2024 Dale Jean [facility] [address] [place] [phone] 04/27/2024 Dale Jean [address] [address] 05/01/2024 Bisi Albright Assessments Encounter Date Diagnosis (ICD Code) Assessment Notes Treatment Notes Treatment Clinical Notes Section Notes 04/27/2024 Migraine without aura, not intractable, without status migrainosus (ICD-10 - G43.009) -Abortive treatment plan: Continue Ubrelvy 50 mg or Nurtec. Gave sample of Zavzpret.-Preven tive treatment plan: Continue Aimovig. Discontinue topamax- she has already weaned down to 12.5 mg qod. Start zonisamide at 50 mg qhs for 2 weeks, then increase to 100 mg qhs. She may take this in the morning instead of bedtime if she prefers.-Educate d the patient on migraine lifestyle recommendations. I recommended the following measures: avoid known triggers of migraine, drink > 100 fluid ounces of non-caffeinated fluid daily, limit caffeine to 2 servings/day, sleep 7-8 hours/night and address any sleep concerns with us and report symptoms of snoring or fatigue; healthy management of stress; avoid treating headaches more than 2 days/week with abortive medication unless approved in treatment plan; can take Riboflavin 400 mg and Magnesium 500 mg daily as supplements; keep scheduled follow-up appointments 04/27/2024 Adverse effect of other drugs, medicaments and biological substances, initial encounter (ICD-10 - T50.995A) Discontinue topamax 12.5 mg qod. She will start zonisamide for the purpose of migraine prevention with goal of fewer side effects. 09/07/2024 Migraine without aura, not intractable, without status migrainosus (ICD-10 - G43.009) -Abortive treatment plan: Continue Ubrelvy. Recommend starting riboflavin and magnesium supplementation. -Preventive treatment plan: Continue Aimovig. -Educated the patient on migraine lifestyle recommendations. I recommended the following measures: avoid known triggers of migraine, drink > 100 fluid ounces of non-caffeinated fluid daily, limit caffeine to 2 servings/day, sleep 7-8 hours/night and address any sleep concerns with us and report symptoms of snoring or fatigue; healthy management of stress; avoid treating headaches more than 2 days/week with abortive medication unless approved in treatment plan; can take Riboflavin 400 mg and Magnesium 500 mg daily as supplements; keep scheduled follow-up appointments 09/07/2024 Other specified menopausal and perimenopausal disorders (ICD-10 - N95.8) Send labs for vitamins B1, B6, B12, D, folic acid, ferritin, testosterone, estrogen and FSH to [facility]. 09/07/2024 Other amnesia (ICD-10 - R41.3) Send labs for vitamins B1, B6, B12, D, folic acid, ferritin, testosterone, estrogen and FSH to [facility]. Plan Of Treatment Pending Test Test Name Order Date TESTOSTERONE, FREE AND TOTAL, LC/MS/MS 0 09/07/2024 VITAMIN B1 (THIAMINE), BLOOD 09/07/2024 VITAMIN B6 09/07/2024 VITAMIN D, 25-OH, TOTAL, IA 09/07/2024 Insurance Providers Payer Name Payer Address Payer Phone Subscriber Number Group Number Insured Name Patient Relationship to Insured Coverage Start Date Coverage End Date [place] [address] [place] [address] [id number] Emilie Downey Self - patient is the insured Medical (General) History Medical History History ICD Code Chronic Migraine Lumbar DDD Endometriosis GERD Surgical History Surgery Date(Month/Year) Foot 06/09/2019 Laparoscopic 03/29/2018 Laparoscopic
== END 2025-03-19 14:24 | disposition home or self-care (01) ==
PROVIDERS: PCP Internal Medicine; Visit Provider Internal Medicine
DX: N20.0 Calculus of kidney (principal); M46.96 Unspecified inflammatory spondylopathy, lumbar region
CPT/HCPCS: 72100; 74018